=== PATIENT | male | born 1980 | race Caucasian/White ===

== ENCOUNTER 2024-01-19 11:13 | Emergency (ER) | payer OTHER, SELFPAY ==
[2024-01-19 11:15] VITALS: BP 153/98
--- NOTE | 2024-01-19 12:45 | ED.GENMED ---
History of Present Illness
<Ina Bermudez PA-C - Last Filed: 01/19/24 15:30>
General
Chief Complaint: Musculo-Skeletal Complaint
Source: patient
Exam Limitations: none
Time Seen by Provider: 01/19/24 12:27
Nursing documentation reviewed up to this point in time: agreed with
Travel History
Have you had any contact with someone who has COVID-19?: No
Do you have any symptoms of coronavirus? Fever > 100 degrees, chills, cough, shortness of breath, sore throat, loss of taste or smell, muscle aches, or headache?: No
History of Present Illness
History of Present Illness:
This is a 44-year-old male with no past medical history of gastric ulcer who is presenting to emergency department today with left shoulder pain and left back pain that started yesterday. He states that yesterday, he was working with metal poles at
work when he was lifting it with his shoulder abducted and pulling the pool close to his body. Patient states that at this time, he heard something pop and felt a pop at the dorsal surface of the distal triceps. Patient currently notes left
shoulder and back pain. The pain is worse with any movement of his shoulder. This event occurred yesterday. Patient has never had any pain like this before. Patient has tried acetaminophen for the pain which did not help his symptoms. Patient
denies any fevers or chills. Patient denies any falls or significant trauma to the area.
Review of Systems
<Ina Bermudez PA-C - Last Filed: 01/19/24 15:30>
Review of Systems
All Other Systems: ROS reviewed and negative except as documented in HPI and ROS
Phy Exam
<Ina Bermudez PA-C - Last Filed: 01/19/24 15:30>
Physical Exam
Physical Exam:
Vitals: patient's vital are stable
General: Patient is well-appearing and in no acute distress.
Skin: Skin is warm and dry, no rashes or lesions.
Cardiac: Regular rate
Pulm: normal respiratory effort
Musculoskeletal: Left arm swelling seen on the volar surface of the right arm. No right arm swelling. Patient has full range of motion of bilateral upper extremities, including full ROM of left elbow joint. Patient has point tenderness palpation of
the left upper trapezius, but no tenderness palpation of the shoulder joint itself. Patient has significant pain in the upper back with shoulder abduction and adduction. Negative empty can test. No tenderness to palpation of the left biceps tendon.
Negative left Yergason's test.
Neuro: Patient is awake and alert, CN II-XII intact.
Course
<Ina Bermudez PA-C - Last Filed: 01/19/24 15:30>
Orders/Labs/Results
Orders:
Orders
01/19/24 11:19
CR Shoulder, Trauma - Left Urgent
Reason For Exam: pain
Vital Signs
Initial and Last Documented VS:
Initial Vital Signs
Temp Pulse Resp BP Pulse Ox
97.7 F 79 16 153/98 98
01/19/24 11:15 01/19/24 11:15 01/19/24 11:15 01/19/24 11:15 01/19/24 11:15
Last Documented Vital Signs
Temp Pulse Resp BP Pulse Ox
97.7 F 79 16 153/98 98
01/19/24 11:15 01/19/24 11:15 01/19/24 11:15 01/19/24 11:15 01/19/24 11:15
<Brandon Llanos MD - Last Filed: 01/19/24 15:17>
Orders/Labs/Results
Orders:
Orders
01/19/24 11:19
CR Shoulder, Trauma - Left Urgent
Reason For Exam: pain
Vital Signs
Initial and Last Documented VS:
Initial Vital Signs
Temp Pulse Resp BP Pulse Ox
97.7 F 79 16 153/98 98
01/19/24 11:15 01/19/24 11:15 01/19/24 11:15 01/19/24 11:15 01/19/24 11:15
Last Documented Vital Signs
Temp Pulse Resp BP Pulse Ox
97.7 F 79 16 153/98 98
01/19/24 11:15 01/19/24 11:15 01/19/24 11:15 01/19/24 11:15 01/19/24 11:15
<Ina Bermudez PA-C - Last Filed: 01/19/24 15:30>
MDM/Problems Addressed
Differential Diagnosis Includes:
ddx include partial biceps tendon tear, biceps tendonitis, trapezius muscle strain, rotator cuff tear/strain, osteoarthritis, ovulsion fracture
MDM/Problems Addressed:
left shoulder pain
Chronic conditions affecting care:
n/a
Acute Exacerbation and/or Progression of Chronic Illness:
n/a
<Ina Bermudez PA-C - Last Filed: 01/19/24 15:30>
*Radiology
Radiology exam reviewed: radiology read reviewed
*Pulse Oximetry
Patient hypoxic: no
*Critical Care Note
Total Time (30-74mins, 75-104mins- exclusive of procedures): Not Applicable
Data Reviewed
Review of Other/Old Records Reveals: Records (No previous ER visits in [facility]) and Discharge Summary (No history of hospitalizations in [facility])
Source: patient and records
<Ina Bermudez PA-C - Last Filed: 01/19/24 15:30>
Patient Management
Escalation/DeEscalation of care consider admission/obs:
43-year-old male with no past medical history presenting emergency department today with left shoulder pain that started yesterday when he was lifting a metal pole and he felt a pop. He was at work work during this time. He states that his pain is
worse with any movement. On exam, he has left-sided asymmetric swelling over the left bicep, consistent with a partial biceps tendon tear, however patient has full range of motion of the elbow with no difficulty. He also has tenderness palpation
of the left upper trapezius, no tenderness palpation of the shoulder joint. Patient has pain with any range of motion. Patient denies any other injuries. His x-ray is negative for any fracture or dislocation. We will send patient home with a
short course of Percocet, and have him follow-up with an orthopedist at his earliest convenience. Patient made aware of plan.
ED Attending Note
<Ina Bermudez PA-C - Last Filed: 01/19/24 15:30>
-
Portions of this chart may have been created with voice recognition software.� Occasional wrong word or��sound alike� substitutions may have occurred due to the inherent limitations of voice recognition software.
<Brandon Llanos MD - Last Filed: 01/19/24 15:17>
ED Attending Note
Patient seen and examined by attending physician: Yes
ED Attending Note:
Patient presents to ED secondary to sudden onset of left shoulder/back/upper arm pain since yesterday afternoon. Patient states that he was at work, when he lifted heavy steel beam and pulled it towards him, when he heard 'popping' noise around his
shoulder. Denies direct trauma. Denies loss of sensation or weakness. Patient reports pain at rest, but worse with any movement. Denies previous history of similar symptoms.
Physical Exam
General: mild painful distress, not acutely ill. afebrile
Head: nc/at. eomi
Neck: supple. no meningeal signs.
Neuro: alert and oriented. no focal neurological deficits
Skin: no rash
Psychiatric: well kept. interactive and cooperative
Extremities: left UE: swelling noted over distal humerus without ecchymosis with minimal tenderness. no olecranon tenderness. diffuse left shoulder tenderness without deformity.
X-ray: NAD.
History and exam concerning for likely shoulder strain versus bicep tendon injury. Patient otherwise remains neurologically intact. Patient will be placed on arm sling with referral to orthopedic surgeon for an outpatient consultation. Patient
expresses understanding at time of discharge.
Discharge Plan
Departure
Patient Disposition: Home (Routine Discharge)
Date of Disposition: 01/19/24
Time of Disposition: 12:46
Patient with high blood pressure during this ER visit?: Yes
Condition: Good
Discharge Problem:
Trapezius muscle strain, Traumatic partial tear of biceps tendon
Instructions: Muscle Strain (DC), Biceps tendinopathy, BLOOD PRESSURE
Prescriptions:
New
oxycodone-acetaminophen [Percocet] 5-325 mg tablet
1 tab PO Q6HPRN PRN (Reason: pain) Qty: 8 0RF
Referrals:
UNKNOWN - PT DOES,NOT KNOW [Family Provider] -
Chip Edouard MD [Active] - Call in 1-3 days for appt
Activity Restrictions/Additional Instructions:
We have sent Percocet to your pharmacy. You can use one tablet every 6 hours as needed for pain. This medication contains acetaminophen so please do not take acetaminophen while taking this medication.
Please call the orthopedist office on Sunday for an appointment, it is important to follow up on this problem.
Please stop activities that exacerbate your symptoms until you see the orthopedist.
Interventions
Interventions:
*Risk Screen - Suicide Last Done: 01/19/24 11:15
*General Assessment Last Done: 01/19/24 11:15
*Neglect/Abuse Screening Last Done: 01/19/24 11:15
ED- Fall Risk Assessment Last Done: 01/19/24 12:11
*ED COVID-19 Vaccine History Last Done: 01/19/24 12:14
*Nursing Disposition Last Done: 01/19/24 13:07
ED-Musculoskeletal Assessment Last Done: 01/19/24 12:08
Discharge Date and Time
Discharge Date/Time: 01/19/24 13:07
== END 2024-01-19 13:07 | disposition home or self-care (01) ==
LOC: EMR 11:13
PROVIDERS: EMERGENCY PHYSICIAN Emergency Medicine
DX: S29.012A Strain of muscle and tendon of back wall of thorax, initial encounter (principal); S46.212A Strain of muscle, fascia and tendon of other parts of biceps, left arm, initial encounter; X50.0XXA Overexertion from strenuous movement or load, initial encounter; Y99.0 Civilian activity done for income or pay
CPT/HCPCS: 99283; 73030

== ENCOUNTER 2024-01-25 05:09 | Emergency (ER) | payer OTHER, SELFPAY ==
--- NOTE | 2024-01-25 06:20 | ED.GENMED ---
History of Present Illness
General
Chief Complaint: Musculo-Skeletal Complaint
Source: patient and records
Exam Limitations: none
Time Seen by Provider: 01/25/24 06:07
Nursing documentation reviewed up to this point in time: agreed with
Travel History
Have you had any contact with someone who has COVID-19?: No
Do you have any symptoms of coronavirus? Fever > 100 degrees, chills, cough, shortness of breath, sore throat, loss of taste or smell, muscle aches, or headache?: No
History of Present Illness
History of Present Illness:
44-year-old male with past medical history of GERD/PUD presents to the emergency room for evaluation of left bicep pain. He sustained an injury a few days ago was seen in this emergency room diagnosed with likely bicep tendon rupture on the left.
He was placed in a sling and referred to orthopedics. He has an appointment with orthopedist on 01/28/2024. He was discharged with Percocet 5 mg tabs to be used as needed for pain; he is unable to take NSAIDs due to his history of ulcers. He has
been supplementing with Tylenol, ice, immobilization with a sling. He says that pain has been reasonably controlled but he has required double dose of Percocet for adequate pain control. He says that he is now out of Percocet tablets and his
appointment is not until Sunday (3 days from now). He came to the emergency room for pain control.
Review of Systems
Review of Systems
All Other Systems: ROS reviewed and negative except as documented in HPI and ROS
Musculoskeletal: Reports other (Left bicep pain)
Phy Exam
Physical Exam
Physical Exam:
General: Well appearing and non-toxic
HEENT: protecting airway
Neck: appears supple
CV: No evidence of cyanosis
Resp: No accessory muscle use
Abd: Non-distended
Extremities: Patient has palpable defect in his bicep tendon at the insertion on the left with a Dany deformity; he has significant ecchymosis of the left upper arm and swelling in this area; he has a good strong left radial pulse; motor and
sensory function intact radial, median, ulnar nerve distribution left upper extremity
Neuro: Alert
Psych: Normal affect
Skin: Intact
Scores
Heart Failure Risk
Heart Failure Risk Score: Not Applicable
Heart Score for Chest Pain Patients
STEMI patient?: Not applicable
Withdrawal Assessment of Alcohol
Withdrawal Assessment Completed?: Not applicable
Course
Orders/Labs/Results
Orders:
Orders
01/25/24 06:17
Oxycodone/Acetaminophen [Percocet 5/325] 1 tablet PO NOW STA
Vital Signs
Initial and Last Documented VS:
Initial Vital Signs
Temp Pulse Resp BP Pulse Ox
36.6 C 71 20 138/86 100
01/25/24 06:28 01/25/24 06:28 01/25/24 06:28 01/25/24 06:28 01/25/24 06:28
Last Documented Vital Signs
Temp Pulse Resp BP Pulse Ox
36.6 C 71 20 138/86 100
01/25/24 06:28 01/25/24 06:28 01/25/24 06:28 01/25/24 06:28 01/25/24 06:28
MDM/Problems Addressed
Differential Diagnosis Includes:
Bicep tendon rupture, bicep strain
MDM/Problems Addressed:
44-year-old male diagnosed with likely bicep tendon rupture in the emergency room a few days ago presents with uncontrolled pain as described above. He was prescribed Percocet for pain and has not been able to take NSAIDs due to history of ulcers.
He is now out of Percocet this appointment is not for 3 days. Queried PDMP patient has no red flags only 1 prescription in the past year and that was from this emergency room for total of eight 5 mg Percocet tabs. Will discharge with another short
course of pain control to last for the next 3 days until he sees the orthopedist. He will remain with sling in place. Spoke about return precautions all questions answered.
*Pulse Oximetry
Patient hypoxic: no
*Critical Care Note
Total Time (30-74mins, 75-104mins- exclusive of procedures): Not Applicable
Data Reviewed
Source: patient and records
ED Attending Note
-
Portions of this chart may have been created with voice recognition software.� Occasional wrong word or��sound alike� substitutions may have occurred due to the inherent limitations of voice recognition software.
Discharge Plan
Departure
Patient Disposition: Home (Routine Discharge)
Date of Disposition: 01/25/24
Time of Disposition: 06:17
Patient with high blood pressure during this ER visit?: No
Discharge Problem:
Traumatic injury of left biceps brachii muscle
Instructions: Biceps Tendon Rupture (DC)
Prescriptions:
New
oxycodone-acetaminophen [Percocet] 10-325 mg tablet
1 tab PO Q8H PRN (Reason: Pain) Qty: 10 0RF
No Action
oxycodone-acetaminophen [Percocet] 5-325 mg tablet
1 tab PO Q6HPRN PRN (Reason: pain) Qty: 8 0RF
Referrals:
Stuart Richardson MD [Active] - 01/28/24
NONE,* [Family Provider] -
Activity Restrictions/Additional Instructions:
Thank you for visiting the Emergency Department at [facility].
1. Please schedule a follow up appointment as directed. Call first thing tomorrow morning to make an appointment.
2. If indicated, please take your medications as instructed and indicated on discharge paperwork.
3. If any of your symptoms do not improve, or persist, or become more severe within 6-12 hours, please return to the emergency department for further care.
4. Please return to the emergency department if you develop a headache, neck pain/stiffness, fever greater than 100.4F, chest pain, shortness of breath, persistent nausea, vomiting, slurred speech, difficulty walking, numbness/tingling, weakness,
signs of infection or any other symptoms that are worrisome to you.
Please call [phone] if you have any questions.
Interventions
Interventions:
*Risk Screen - Suicide Last Done: 01/25/24 05:13
*General Assessment Last Done: 01/25/24 05:13
*Neglect/Abuse Screening Last Done: 01/25/24 05:13
ED- Fall Risk Assessment Last Done: 01/25/24 05:13
*ED COVID-19 Vaccine History Last Done: 01/25/24 05:13
*Nursing Disposition Last Done: 01/25/24 06:29
ED-Musculoskeletal Assessment Last Done: 01/25/24 06:28
Discharge Date and Time
Discharge Date/Time: 01/25/24 06:30
[2024-01-25] MEDS: PERCOCET 5/325 1 TABLET PO (06:23)
[2024-01-25 06:28] VITALS: BP 138/86
== END 2024-01-25 06:30 | disposition home or self-care (01) ==
LOC: EMR 05:09
PROVIDERS: EMERGENCY PHYSICIAN Emergency Medicine
DX: S49.92XA Unspecified injury of left shoulder and upper arm, initial encounter (principal); X58.XXXA Exposure to other specified factors, initial encounter; K21.9 Gastro-esophageal reflux disease without esophagitis; Z87.11 Personal history of peptic ulcer disease
CPT/HCPCS: 99282

== ENCOUNTER → 2024-03-03 16:31 | Outpatient (REF) | payer SELFPAY | LOC: RAD 16:31 | PROVIDERS: ATTENDING PHYSICIAN Orthopaedic Surgery | DX: Z18.9 Retained foreign body fragments, unspecified material (principal) | CPT/HCPCS: 70030 ==

== ENCOUNTER 2024-08-07 17:45 | Emergency (ER) | payer OTHER, SELFPAY ==
[2024-08-07 17:56] VITALS: BP 141/96
--- NOTE | 2024-08-07 18:57 | ED.MUSCINJ ---
HPI-Injury
General
Chief Complaint: Musculo-Skeletal Complaint
Time Seen by Provider: 08/07/24 18:39
History of Present Illness-Injury
Initial Injury comments:
Patient presents to the emergency department with a left bicipital and shoulder pain. Notes that he has a torn bicep which occurred in January. States yesterday he was doing an FCE test when he felt another pop and had worsening of his biceps pain
as well as pain in the left shoulder. He has numbness radiating to his first 3 digits on the left hand. No weakness in the hand
Phy Exam
Physical Exam
Physical Exam:
General: in distress from pain, holding L arm
Head: NCAT
Neck, Normal in appearance, no swelling
Respiratory: No Respiratory distress
Abdomen: No distension
Ext: L arm with swelling and ttp at distal biceps, tenderness at bicipital groove. limiting ROM of shoulder. TU and WE intact 5/5, WF 5/5, 2-3x, TO, FS intact. Sensation limited in first 3 digits dorsal and palmar aspect
Neuro: THURMAN, AOx4
Psych: Normal affect
Skin: Normal color
Injury Course
Orders/Labs/Results
Orders:
Orders
08/07/24 18:02
Electrocardiogram (*1) Urgent
Reason for Study: Other
Other Reason for Exam: Diaphoretic
08/07/24 18:56
Oxycodone [Roxicodone] 5 mg PO NOW STA
Shoulder, Left 2 View CR [CR Shoulder - Left Min 2 View*] Urgent
Comment:
Reason For Exam: L shoulder pain
08/07/24 19:13
Sling [Braces/Immobilizers] As Directed
Type of Brace/Immobilizer: Sling
*Critical Care Note
Total Time (30-74mins, 75-104mins- exclusive of procedures): Not Applicable
ED Attending Note
ED Attending Note
ED Attending Note:
Obvious left biceps proximal rupture. There is no hematoma. Would doubt bony injury given mechanism of injury. Will x-ray to rule out bony injury
-
Portions of this chart may have been created with voice recognition software.� Occasional wrong word or��sound alike� substitutions may have occurred due to the inherent limitations of voice recognition software.
Discharge Plan
Departure
Patient Disposition: Home (Routine Discharge)
Date of Disposition: 08/07/24
Time of Disposition: 22:02
Patient with high blood pressure during this ER visit?: Yes
Discharge Problem:
Biceps tendon rupture
Prescriptions:
New
oxycodone 5 mg capsule
5 mg PO BID PRN (Reason: Pain) Qty: 13 0RF
No Action
oxycodone-acetaminophen [Percocet] 5-325 mg tablet
1 tab PO Q6HPRN PRN (Reason: pain) Qty: 8 0RF
oxycodone-acetaminophen [Percocet] 10-325 mg tablet
1 tab PO Q8H PRN (Reason: Pain) Qty: 10 0RF
Referrals:
NONE,* [Family Provider] -
Activity Restrictions/Additional Instructions:
please follow up with your orthopedist as soon as possible
ice and rest
take pain medications as needed
Interventions
Interventions:
*Risk Screen - Suicide Last Done: 08/07/24 19:22
*General Assessment Last Done: 08/07/24 19:22
*Neglect/Abuse Screening Last Done: 08/07/24 19:22
ED- Fall Risk Assessment Last Done: 08/07/24 19:22
*ED COVID-19 Vaccine History Last Done: 08/07/24 19:22
*Nursing Disposition Last Done: 08/07/24 22:13
ED-Musculoskeletal Assessment Last Done: 08/07/24 19:22
Discharge Date and Time
Discharge Date/Time: 08/07/24 22:18
Print Language: POLISH
[2024-08-07 20:00] VITALS: BP 138/88
[2024-08-07] MEDS: ROXICODONE 5 MG PO (20:18)
--- NOTE | 2024-08-08 12:07 | CM ---
Addendum entered by Alanna Ochoa RN 08/08/24 12:15:
CM updated patient.
Original Note:
CM was consulted to assist with Oxycodone prior authorization. CM requested ED physician change oxycodone script to tablets. CM spoke with [facility] pharmacy and they are able to fill a partial prescription for patient. CM called patient to update
== END 2024-08-07 22:18 | disposition home or self-care (01) ==
LOC: EMR 17:45
PROVIDERS: EMERGENCY PHYSICIAN Emergency Medicine
DX: S46.212A Strain of muscle, fascia and tendon of other parts of biceps, left arm, initial encounter (principal); X50.1XXA Overexertion from prolonged static or awkward postures, initial encounter; R03.0 Elevated blood-pressure reading, without diagnosis of hypertension
CPT/HCPCS: 99284; 73030; 93005

== ENCOUNTER → 2024-09-23 12:54 | Outpatient (REF) | payer OTHER, SELFPAY | LOC: RAD 12:54 | PROVIDERS: ATTENDING PHYSICIAN Orthopaedic Surgery | DX: Z01.818 Encounter for other preprocedural examination (principal) | CPT/HCPCS: 71046 ==